=== PATIENT | female | born 1960 | race Native Hawaiian/Other Pacific Islander ===

== ENCOUNTER 2017-02-28 11:17 | Outpatient (CLI) | payer OTHER ==
--- NOTE | 2017-02-28 13:32 | Mammography Report ---
BILATERAL MAMMOGRAM with CAD: HISTORY: Cancer screening. FINDINGS: There are scattered fibroglandular densities (approximately 25%-50% glandular). No mass, distortion, suspicious calcification, or skin change is seen. IMPRESSION: Negative mammogram. There is no mammographic evidence of malignancy. RECOMMENDATION: Follow-up per ACS guidelines. BI-RADS CATEGORY: 1 = Negative ACR BI-RADS MAMMOGRAPHIC CODES: 0 = Needs additional imaging evaluation; 1 = Negative; 2 = Benign; 3 = Probably benign; 4 = Suspicious; 5 = Malignant; 6 = Known biopsy-proven malignancy COMMENT: 1. Dense breast tissue, i.e., adenosis, fibrocystic changes, etc., may obscure an underlying neoplasm. 2. Approximately 10% of cancers are not detected with mammography. 3. A negative mammography report should not delay biopsy if a clinically suspicious mass is present. COMMENT: [facility]
--- NOTE | 2017-02-28 15:57 | XRay Report ---
RIGHT SHOULDER RADIOGRAPHS INDICATION: Lump on shoulder. COMPARISON: None similar. FINDINGS: Frontal and Y views of the right shoulder, 4 radiographs with a skin marker indicating site of lump on one of the images demonstrate normal humeral head contour, well positioned against the glenoid. Normal acromioclavicular joint. Preserved scapular contour. Normal visualized soft tissues, right ribs and lung. CONCLUSION: No acute right shoulder radiographic abnormality, as described. Thank you for the opportunity to participate in this patient's care.
== END 2017-02-28 11:18 | disposition home or self-care (01) ==
LOC: SPVWC 11:17
PROVIDERS: ATTEND Family Medicine
DX: Z12.31 Encounter for screening mammogram for malignant neoplasm of breast (principal); M25.811 Other specified joint disorders, right shoulder
CPT/HCPCS: 73030; G0202; 77067

== ENCOUNTER 2019-04-18 09:38 | Outpatient (CLI) | payer OTHER ==
--- NOTE | 2019-04-18 11:16 | Mammography Report ---
BILATERAL DIGITAL SCREENING MAMMOGRAM WITH CAD INDICATION: Screening. COMPARISONS: 02/28/2017 FINDINGS: Craniocaudal and mediolateral oblique views of both breasts were obtained using 2-D digital acquisition. In addition to standard review, the examination was analyzed for possible abnormalities using a computer-assisted detection device (iCAD). There are scattered areas of fibroglandular density. Right parenchymal asymmetries on the MLO view requires additional imaging. There is mild architectura l distortion but no suspicious calcifications. The left breast is negative. IMPRESSION: Right asymmetries and architectural distortion requiring additional imaging. Recommend recall for rig ht lateral and spot compression MLO views and right breast ultrasound if needed. BI-RADS CATEGORY 0: INCOMPLETE - NEED ADDITIONAL IMAGING EVALUATION AND/OR PRIOR MAMMOGRAMS FOR COMP ARISON Information is entered into a reminder system for a target due date for the next mammogram. The resul ts and recommendations were sent to the patient by mail. Signer Name: Samuel Elmore MD Signed: 04/18/2019 11:12 AM Workstation Name: [id number]
== END 2019-04-18 09:39 | disposition home or self-care (01) ==
LOC: SPVWC 09:38
PROVIDERS: ATTEND Family Medicine
DX: Z12.31 Encounter for screening mammogram for malignant neoplasm of breast (principal)
CPT/HCPCS: 77067

== ENCOUNTER 2019-05-06 09:07 | Outpatient (CLI) | payer OTHER ==
--- NOTE | 2019-05-06 09:57 | Mammography Report ---
DIGITAL DIAGNOSTIC MAMMOGRAM WITH CAD, -- 05/06/2019 INDICATION: Recalled for asymmetries. TECHNIQUE: Digital right mammographic imaging was performed. Spot compression views were obtained. L ateral and rolled CC views were also obtained. This examination was interpreted with the benefit of C omputer-aided Detection analysis. COMPARISON: 04/18/2019 screening. FINDINGS: Breast Density: There are scattered areas of fibroglandular density. There is no evidence of dominant mass, suspicious calcifications or architectural distortion in the r ight breast. Satisfactory effacement of asymmetries on spot images. Lateral and rolled CC views are n egative. IMPRESSION: No mammographic evidence of malignancy. Follow up recommendation: Routine yearly BI-RADS Category 1: Negative. A "normal" or negative report should not discourage follow up or biopsy of a clinically significant f inding. A written summary of these findings will be mailed to the patient. The patient will be entered into a mammography reporting system which will generate a reminder letter for the patient's next appointmen t at the appropriate interval. According to the [employer], yearly mammograms are recommended starting at age 40 and continuing as long as a woman is in good health. Breast MRI is recommended for women with an berny roximately 20-25% or greater lifetime risk of breast cancer, including women with a strong family his tory of breast or ovarian cancer and women who have been treated for Hodgkin's disease. Signer Name: Samuel Elmore MD Signed: 05/06/2019 9:53 AM Workstation Name: [id number]
== END 2019-05-06 09:08 | disposition home or self-care (01) ==
LOC: SPVWC 09:07
PROVIDERS: ATTEND Family Medicine
DX: R92.8 Other abnormal and inconclusive findings on diagnostic imaging of breast (principal)

== ENCOUNTER 2020-06-30 09:15 | Outpatient (CLI) | payer OTHER ==
--- NOTE | 2020-06-30 10:48 | Mammography Report ---
DIGITAL SCREENING MAMMOGRAM WITH CAD, 06/30/2020 INDICATION: Routine screening mammography. TECHNIQUE: Digital bilateral 2D mammography was obtained in the craniocaudal and mediolateral obliq ue projections. This examination was interpreted with the benefit of Computer-Aided Detection analysi s. COMPARISON: 04/18/2019, 02/28/2017 FINDINGS: Breast Density: There are scattered areas of fibroglandular density. There is no evidence of dominant mass, suspicious calcifications or architectural distortion in eithe r breast. IMPRESSION: Follow up recommendation: Routine yearly BI-RADS Category 1: Negative. A "normal" or negative report should not discourage follow up or biopsy of a clinically significant f inding. A written summary of these findings will be mailed to the patient. The patient will be entered into a mammography reporting system which will generate a reminder letter for the patient's next appointmen t at the appropriate interval. The [employer] recommends yearly mammograms starting at age 40 and continuing as l mayela as a woman is in good health. Breast MRI is recommended for women with an approximate 20-25% or greater lifetime risk of breast cancer, including women with a strong family history of breast or ova wilian cancer or who have been treated for Hodgkin's disease. Signer Name: Eloina Wilkinson MD Signed: 06/30/2020 10:44 AM Workstation Name: [id number]
== END 2020-06-30 09:16 | disposition home or self-care (01) ==
LOC: SPVWC 09:15
PROVIDERS: ATTEND Family Medicine
DX: Z12.31 Encounter for screening mammogram for malignant neoplasm of breast (principal)
CPT/HCPCS: 77067

== ENCOUNTER 2020-12-29 09:16 | Outpatient (CLI) | payer OTHER ==
--- NOTE | 2020-12-29 11:59 | Mammography Report ---
DIGITAL DIAGNOSTIC MAMMOGRAM WITH CAD , 12/29/2020 CLINICAL INFORMATION / INDICATION: PAIN OF RIGHT BREAST TECHNIQUE: Digital right mammographic imaging was performed. This examination was interpreted with the benefit of Computer-aided Detection analysis. COMPARISON: 06/30/2020, 05/06/2019, 04/18/2019 FINDINGS: Breast Density: There are scattered areas of fibroglandular density. No dominant mass, suspicious calcifications or architectural distortion in the right breast. There is a biopsy clip in the upper outer quadrant, posterior depth. No interval change. IMPRESSION: No mammographic evidence of malignancy in the right breast. No mammographic correlate for complaint of breast pain. Clinical correlation is recommended. Follow up recommendation: Routine yearly BI-RADS Category 2: Benign. A "normal" or negative report should not discourage follow up or biopsy of a clinically significant f inding. A written summary of these findings will be mailed to the patient. The patient will be entered into a mammography reporting system which will generate a reminder letter for the patient's next appointmen t at the appropriate interval. According to the [employer], yearly mammograms are recommended starting at age 40 and continuing as long as a woman is in good health. Breast MRI is recommended for women with an berny roximately 20-25% or greater lifetime risk of breast cancer, including women with a strong family his tory of breast or ovarian cancer and women who have been treated for Hodgkin's disease. Signer Name: Edith Patel MD Signed: 12/29/2020 11:55 AM Workstation Name: [facility]
== END 2020-12-29 09:17 | disposition home or self-care (01) ==
LOC: MAMMO 09:16 → SPVWC 09:16
PROVIDERS: ATTEND Family Medicine
DX: N64.4 Mastodynia (principal); R92.8 Other abnormal and inconclusive findings on diagnostic imaging of breast